=== PATIENT | male | born 1985 | race Caucasian/White ===

== ENCOUNTER 2021-01-01 06:04 | Day surgery (SDC) | payer OTHER ==
[~2021-01-01] VITALS: Ht 170.2 cm; Wt 121.6 kg
[2021-01-01 07:26] LABS: BASOPHILS % (AUTO) 0.4 % (0.0-2.0); EOSINOPHILS # (AUTO) 0.4 K/uL (0-0.4); EOSINOPHILS % (AUTO) 3.6 % (0.0-4.0); HEMATOCRIT 41.8 % (36-52); HEMOGLOBIN 14.6 g/dL (12.0-18.0); LYMPHOCYTES # (AUTO) 3.9 K/uL (2.0-11.5); LYMPHOCYTES % (AUTO) 38.4 % (20.5-51.1); MEAN CORPUSCULAR HEMOGLOBIN 30 pg (27-31); MEAN CORPUSCULAR HGB CONC 35 g/dL (33-37); MEAN CORPUSCULAR VOLUME 85.9 fL (80-94); MONOCYTES % (AUTO) 9.5 % (1.7-9.3); NEUTROPHILS # (AUTO) 4.8 K/uL (1.8-7.7); NEUTROPHILS % (AUTO) 48.1 % (42.2-75.2); PLATELET COUNT (AUTO) 249 K/uL (140-450); RED BLOOD CELL COUNT(AUTO) 4.87 MIL/uL (4.20-6.10); RED CELL DISTRIBUTION WIDTH 13.7 % (11.6-13.7); WHITE BLOOD COUNT (AUTO) 10.1 K/uL (4.8-10.8)
[2021-01-01] MEDS ORDERED: BUPIVACAINE-MPF 0.25% 30 ML VIAL INJ ONE (07:31)
[2021-01-01] MEDS ORDERED: LIDOCAINE 1% 500 MG/50 ML VIAL ONE (07:31)
[2021-01-01] MEDS ORDERED: fentaNYL citrate 0.05 MG/ML VIAL ONE (07:42)
[2021-01-01] MEDS ORDERED: MIDAZOLAM 2 MG/2 ML VIAL ONE (07:43)
[2021-01-01] MEDS ORDERED: PROPOFOL 200 MG/20 ML VIAL IV ONE (07:43)
[2021-01-01 07:57] LABS: ALBUMIN 3.8 g/dL (3.4-5.0); ANION GAP 14.7 (8-16); CARBON DIOXIDE 23.9 mmol/L (21-32); CREATININE 0.7 mg/dL (0.6-1.3); POTASSIUM 4.6 mmol/L (3.5-5.1); TOTAL BILIRUBIN 0.5 mg/dL (0.0-1.0)
[2021-01-01] MEDS ORDERED: SEVOFLURANE 250 ML BTL INH ONE (08:25)
[2021-01-01] MEDS ORDERED: MEPERIDINE 50 MG/ML SYR ONE ×2 (08:42→09:53)
[2021-01-01] MEDS ORDERED: ONDANSETRON 4 MG/2 ML VIAL ONE (08:49)
[2021-01-01] MEDS ORDERED: DEXAMETHASONE 4 MG/ML VIAL ONE (08:49)
[2021-01-01] MEDS ORDERED: MEPERIDINE 25 MG/ML SYR IVP PRN (09:35)
[2021-01-01] MEDS ORDERED: HYDROmorphone 1 MG/ML AMP IVP PRN (09:35)
[2021-01-01] MEDS ORDERED: ONDANSETRON 4 MG/2 ML VIAL IVP PRN (09:35)
[2021-01-01] MEDS ORDERED: NACL 0.9% 1,000 ML IV SCH (09:35)
[2021-01-01] MEDS ORDERED: diphenhydrAMINE 50 MG/ML VIAL IVP PRN (09:35)
== END 2021-01-01 13:30 | disposition home or self-care (01) ==
LOC: MDS 06:04 → MMU 06:15 → MDS 13:30
PROVIDERS: ATTEND Podiatrist Foot & Ankle Surgery
DX: M21.621 Bunionette of right foot (principal); M20.41 Other hammer toe(s) (acquired), right foot; M21.611 Bunion of right foot; Z79.899 Other long term (current) drug therapy; Z20.822 Contact with and (suspected) exposure to COVID-19
CPT/HCPCS: 28285; 28292; 36415; 73630; 80053; 85025; 87426; C1713; J1100; J2001; J2175; J2250; J2405; J2704; J3010; J3490; J7120; Q0092